=== PATIENT | male | born 1985 | race Caucasian/White ===

== ENCOUNTER 2021-12-01 17:00 | Emergency (ER) | payer OTHER, SELFPAY ==
[2021-12-01 18:24] VITALS: BP 170/140; PULSE 87; RESP 18; TEMP 36.3; O2SAT 100; BMI 50.0
--- NOTE | 2021-12-01 18:38 | ED_ITS ---
HPI - General Adult General Chief complaint: General Medical Stated complaint: cough Time Seen by Provider: 12/01/21 18:37 Source: patient Mode of arrival: ambulatory Limitations: no limitations History of Present Illness HPI narrative: Patient is a 36 year old male presenting to the emergency department today with a persistent cough. Patient states that a few months ago, he had COVID-19 and ever since, whenever he laughs, he has a persistent cough. Patient states that he has no other symptoms or complaints, he is just annoyed with the cough. Patient denies any dizziness, lightheadedness, abdominal pain, nausea, vomiting, fever, chills, blurry vision, double vision, loss of vision, chest pain, difficulty breathing, shortness of breath, back pain, night sweats, pain with urination, increased urinary frequency, increased urinary urgency, blood in his urine or stool, syncope or a near syncopal episode, recent trauma or falls, bowel incontinence, bladder incontinence, bowel retention, bladder retention, or any other complaints at this time. Onset (ago): month(s) Relieving factors: none Exacerbating factors: none Associated symptoms: cough Treatments prior to arrival: none Related Data Previous Rx's Medication Instructions Recorded benzonatate 100 mg capsule 100 mg PO TID PRN 7 Days #21 cap 12/01/21 Allergies Allergy/AdvReac Type Severity Reaction Status Date / Time No Known Allergies Allergy Verified 12/01/21 18:21 Review of Systems Constitutional: Constitutional: Reports no additional constitutional complaints, Denies chills, Denies fever(s) and Denies night sweats Eyes: Eyes: Reports no additional eye complaints, Denies blurry vision, Denies change in vision, Denies diplopia, Denies eye discharge, Denies loss of vision and Denies eye pain ENT: Denies dizziness Cardiovascular: Cardiovascular: Reports no additional cardiovascular complaints, Denies chest pain, Denies lightheadedness, Denies Loss of Consciousness and Denies dyspnea Respiratory: Respiratory: Reports no additional respiratory complaints, Reports cough and Denies dyspnea Gastrointestinal: Gastrointestinal: Reports no additional gastrointestinal complaints, Denies abdominal pain, Denies melena, Denies hematochezia, Denies change in bowel habits and Denies change in stool character Genitourinary: Genitourinary: Reports no additional male genitourinary complaints, Denies hematuria, Denies oliguria, Denies difficulty urinating, Denies dysuria, Denies urinary frequency, Denies urinary hesitancy, Denies urinary incontinence and Denies urinary urgency Musculoskeletal: Musculoskeletal: Reports no additional musculoskeletal complaints, Denies numbness and Denies tingling Neurologic: Denies dizziness, Denies loss of vision, Denies numbness and Denies tingling Psychiatric: Psychiatric: Reports no additional psychiatric complaints Endocrine: Endocrine: Reports no additional endocrine complaints Hematologic/Lymphatic: Hematologic/Lymphatic: Reports no additional hematologic/lymphatic complaints Allergic/Immunologic: Allergic/Immunologic: Reports no additional allergic/immunologic complaints [facility] Past Medical History Attestation statement: The following information was validated with the patient. Source: old records reviewed Social History Social History Advance Directives: No Advance Directives Information Provided: No Physical Exam ED Vital Signs: Vital Signs - 24 hr 12/01/21 18:24 Temperature 97.3 F Pulse Rate 87 Respiratory Rate 18 Blood Pressure 170/140 H Pulse Oximetry 100 BMI result Body Mass Index 50.0 Const General: cooperative, no acute distress, alert and awake Nutritional Appearance: well nourished Orientation/consciousness: patient oriented x3 Limitations: no limitations HENMT Head: Yes normal to inspection and Yes atraumatic Ears: hearing grossly normal bilaterally and external ears normal General nose exam: Normal external nose present, no nasal discharge noted and no epistaxis Face and sinus: Yes normal facial exam, No abrasion and No laceration Mouth: Normal oral and palatal mucosa present, no drooling and no muffled voice Eyes General: appearance normal, both eyes and all related structures Periorbital: periorbital findings normal Eyelids: Yes eyelids normal Conjunctivae: conjunctivae normal Pupils: Equal, round and reactive pupils present EOM: EOMs intact bilaterally Neck Neck: Yes normal visual inspection, Yes full ROM and Yes no lymphadenopathy Chest Chest palpation & inspection: normal inspection of the chest Resp Effort & Inspection: normal respiratory effort and able to speak in complete sentences Auscultation: clear to auscultation bilaterally Cardio Rate: regular rate Rhythm: regular rhythm GI Inspection: Yes normal to inspection Neuro General: patient oriented x3 and moves all extremities Cranial nerves: Yes Equal, round and reactive pupils present Cognition (Neuro): normal cognition Motor exam (neuro): 5/5 motor strength present throughout Sensory Exam: Normal double simultaneous stimulation for sensation Coordination: [id number] test normal Extrem General: Yes normal to inspection, Yes full ROM and Yes capillary refill normal Psych Appearance: grossly normal Mental Status: mental status grossly normal Affect: normal affect Attitude: cooperative Thought process: Normal thought process present Thought content: Normal thought content present Insight: Good insight present (Psych) Medical Decision Making MDM Narrative Medical decision making narrative: Patient is a 36 year old male presenting to the emergency department today with a persistent cough post COVID-19 infection. Patient's physical exam was unremarkable. I explained my physical exam findings to the patient. I answered all questions asked by the patient. I stressed the importance of the patient taking his medication as prescribed. I stressed the importance of the patient following up with his primary care provider. I stressed the importance of the patient returning to the emergency department immediately if his symptoms were to worsen or if he were to develop any dizziness, shortness of breath, difficulty breathing, chest pain, blurry vision, loss of vision, nausea, vomiting, abdominal pain, fever, chills, back pain, or any other complaints. Patient verbalized agreement and understanding with this treatment plan and discharge. Differential Diagnosis Differential Diagnosis: persistent cough post COVID-19 infection Medical Records Medical records reviewed: Yes I reviewed the patient's medical records. Discharge Plan Discharge Clinical Impression: Cough Patient Disposition: Home, Self-Care Instructions: Chronic Cough (ED) Additional Instructions: Follow up with your primary care provider. Return to the emergency department immediately if your symptoms worsen or if you develop any dizziness, shortness of breath, difficulty breathing, chest pain, blurry vision, loss of vision, nausea, vomiting, abdominal pain, fever, chills, back pain, or any other complaints. Prescriptions: New benzonatate 100 mg capsule 100 mg PO TID PRN (Reason: cough) 7 Days Qty: 21 0RF Referrals: Paul Alva PA [Primary Care Provider] - Stand Alone Forms: Work/School Release Interventions: ED Discharge Assessment Last Done: 12/01/21 19:55 Discharge Date/Time: 12/01/21 19:57 Print Language: Ukrainian
== END 2021-12-01 19:57 | disposition home or self-care (01) ==
PROVIDERS: Emergency Provider Emergency Medicine; PCP Physician Assistant Medical
DX: R05.9 Cough, unspecified (principal); Z79.899 Other long term (current) drug therapy
CPT/HCPCS: 99283

== ENCOUNTER 2023-08-25 15:07 | Outpatient (AMB) | payer OTHER, SELFPAY ==
--- NOTE | 2023-08-25 15:17 | A.OFFVIS_ITS ---
Intake Vital Signs 3 08/25/23 15:22 Height 5 ft 6 in Weight 339 lb BMI 54.7 BP 202/121 H Blood Pressure Location Lt brachial Position Sitting Pulse 94 Intake Visit Reasons: Sebaceous cysts, 1 or 2 head, 1 on back Intake Note: Patient is seen in office for evaluation and treatment of multiple cyst. Pt c/o: admits to 2 cyst in the back of the head, onset many yrs, has another one in the back for a year, neither one has discharge, no swelling, pain, or other concerns Utilization Review Rn Required: No Accompanied by: Self / Same As Patient Allergies No Known Allergies Allergy (Verified 08/25/23 15:17) HPI HPI Comments 2 History of Present Illness0 Details 38-year-old male patient presenting with 2 skin lesions which have developed within the past year and have increased in size and are causing the patient some concern. The 1st is located on his midback and is noted to be red and raised. He denies any previous surgery in this location and denies any bleeding or discharge. He did try to squeeze it which only caused increased pain. Second lesion is located in the scalp to the right of midline in the posterior scalp. He reports a previous lesion excised in the similar area several years ago which was benign. He is requesting excision of both lesions. [facility] Family History Maternal Aunt Breast cancer Maternal Grandmother Breast cancer Social History Alcohol intake: current Alcohol intake frequency: holidays/special occasions only Patient Tobacco Use Status: Current someday Tobacco user Review of Systems Const All systems reviewed & are unremarkable except as noted in HPI and below Denies chills, Denies fever(s), Denies headache(s), Denies poor appetite and Denies weakness ENT Denies headache(s) Card Denies chest pain, Denies irregular heart rhythm, Denies palpitations and Denies dyspnea Resp Denies cough, Denies excessive phlegm production and Denies dyspnea GI Denies abdominal pain, Denies bloating, Denies change in bowel habits, Denies constipation, Denies heartburn, Denies diarrhea, Denies nausea and Denies vomiting Denies difficulty urinating and Denies urinary frequency Musc Denies back pain, Denies muscle weakness and Denies numbness Skin/Breast Reports as per HPI, Denies changing lesions and Denies unusual bruising Neuro Denies headache(s), Denies numbness, Denies paresthesias and Denies weakness Psych Denies anxiety and Denies depression Endo Denies palpitations Luis M/Lymph Denies lymphadenopathy Physical Exam Const General: cooperative and no acute distress Nutritional Appearance: well nourished Orientation/consciousness: patient oriented x3 Limitations: no limitations HEENT Head: Yes normocephalic and Yes atraumatic Head images: 2 1. 1 cm Pilar cyst in the right posterior scalp Ears: hearing grossly normal bilaterally Resp Effort & Inspection: normal respiratory effort, no audible wheezes, no cough and no respiratory distress Cardio Jugular venous distension: no JVD GI Inspection: Yes normal to inspection Back/Spine/Pelvis Back/spine/pelvis image: 2 1. 1 cm red slightly raised lesion suggestive of a neurofibroma. 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 The patient is requested excision of both lesions and after a discussion of the procedure, risks, and alternatives, he consents to excision of the right scalp and midback lesion as a minor surgery under local anesthesia. Coding Level of Care Code New Pt Level 4 (51958) Diagnoses Pilar cyst of scalp L72.11 Neurofibroma of back D36.17
[2023-08-25 15:22] VITALS: BP 202/121; PULSE 94; BMI 54.7
== END 2023-08-25 15:39 | disposition home or self-care (01) ==
PROVIDERS: PCP Physician Assistant Medical; Visit Provider Surgery
DX: L72.11 Pilar cyst (principal); D36.17 Benign neoplasm of peripheral nerves and autonomic nervous system of trunk, unspecified
CPT/HCPCS: 99204

== ENCOUNTER → 2023-08-25 15:07 | Outpatient (BNVA) | payer OTHER, SELFPAY | PROVIDERS: PCP Physician Assistant Medical; Visit Provider Surgery ==

== ENCOUNTER → 2023-09-13 14:00 | Outpatient (BNV) | payer OTHER, SELFPAY | PROVIDERS: PCP Registered Nurse; Visit Provider Surgery | DX: L72.11 Pilar cyst (principal) | CPT/HCPCS: 11402; 11420 ==

== ENCOUNTER 2023-09-13 14:05 | Outpatient (REF) | payer OTHER, SELFPAY ==
[2023-09-13 14:14] VITALS: BP 167/97; PULSE 89; RESP 16; TEMP 36.6; O2SAT 97
[2023-09-13 14:15] VITALS: BMI 51.6
--- NOTE | 2023-09-13 14:43 | P.OP_ITS ---
Operative Note Operative Note Date of Service: 09/13/23 Narrative: Preoperative diagnosis: Epidermal inclusion cyst upper left mid back, Pilar cyst right scalp Postoperative diagnosis: Same Procedure: Excision of epidermal inclusion cyst upper left back, Pilar cyst right scalp Surgeon: Leo Lacy MD Heavy Threader: None Anesthesia: Lidocaine 1% with epinephrine Indications for procedure: 38-year-old male patient presenting with enlarging cyst of the upper left back and right scalp. Operative findings: Pilar cyst right scalp, epidermal inclusion cyst left back Specimen: Pilar cyst right scalp, epidermal inclusion cyst left back Estimated blood loss: None Complications: None Procedure details: Patient was brought to the minor surgery suite. Site of surgery was confirmed by the patient in the scalp and left back. Patient was placed in a prone position. Skin was then prepped with Betadine and draped in a sterile fashion. A surgical time-out was called the consent confirmed. Local anesthesia was then infiltrated around both lesions. Beginning in the lower back an elliptical incision was made with a scalpel and carried out through subcutaneous tissue. Sharp dissection was used to excise the lesion completely. This was passed off the table and sent to pathology for further examination. Skin was then closed using interrupted 3-0 nylon sutures. Attention was then directed to the scalp were incision was made directly over the Pilar cyst. This was carried out through subcutaneous tissue up to the cyst wall. Combination of sharp and blunt dissection was used to dissect the cyst from the surrounding subcutaneous tissue. This was passed off the table and sent to pathology for further examination. Light pressure was held to maintain hemostasis. Skin was then closed using interrupted 3-0 Prolene sutures. Sterile dressings were applied to the back using a 2 x 2 gauze and Tegaderm. The patient tolerated procedure well. He was discharged to home in stable condition.
== END 2023-09-13 14:06 | disposition home or self-care (01) ==
LOC: HO.MS 14:05
PROVIDERS: PCP Registered Nurse; Visit Provider Surgery
PROC: (CPT 11422; principal; 2023-09-13 14:00)
DX: L72.0 Epidermal cyst (principal); L72.11 Pilar cyst
CPT/HCPCS: 11422; 11402; 88304

== ENCOUNTER 2023-09-22 12:57 | Outpatient (AMB) | payer OTHER, SELFPAY ==
--- NOTE | 2023-09-22 12:59 | MHC.OFFVIS ---
Intake Vital Signs 09/22/23 13:07 Height 5 ft 6 in Weight 346 lb BMI 55.8 BP 190/100 H Blood Pressure Location Lt brachial Position Sitting Pulse 84 Intake Visit Reasons: S/p exc cyst scalp & mid back Intake Note: Patient is seen in office for post op assessment post excision of epidermal inclusion cyst upper left back, pilar cyst right scalp. 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 Accompanied by: Self / Same As Patient Allergies No Known Allergies Allergy (Verified 09/22/23 13:07) HPI HPI Comments History of Present Illness Details Patient returns for suture removal PFSH Surgical History History of excision of epidermal inclusion cyst (09/13/23) Family History Maternal Aunt Breast cancer Maternal Grandmother Breast cancer Social History Alcohol intake: current Alcohol intake frequency: holidays/special occasions only Patient Tobacco Use Status: Current someday Tobacco user Physical Exam Vital Signs: Last Vital Signs Pulse 84 09/22/23 13:07 BP 190/100 H 09/22/23 13:07 BMI result Body Mass Index 55.8 Assessment & Plan Assessment & Plan (1) Pilar cyst of scalp: Code(s): L72.11 - Pilar cyst (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 Wounds clean and intact. Coding Level of Care Code Global (82737) Diagnoses Pilar cyst of scalp L72.11 Neurofibroma of back D36.17
[2023-09-22 13:07] VITALS: BP 190/100; PULSE 84; BMI 55.8
== END 2023-09-22 13:19 | disposition home or self-care (01) ==
PROVIDERS: PCP Physician Assistant Medical; Visit Provider Surgery
DX: L72.11 Pilar cyst (principal); D36.17 Benign neoplasm of peripheral nerves and autonomic nervous system of trunk, unspecified
CPT/HCPCS: 99024

== ENCOUNTER → 2023-09-22 12:57 | Outpatient (BNVA) | payer OTHER, SELFPAY | PROVIDERS: PCP Physician Assistant Medical; Visit Provider Surgery ==